=== PATIENT | female | born 1985 | race Caucasian/White ===

== ENCOUNTER 2022-02-24 08:56 | Day surgery (SDC) | payer SELFPAY ==
[2022-02-12 12:50] VITALS: BMI 36.2
[2022-02-24] MEDS ORDERED: PROPOFOL 2,000,000 MCG/200 ML VIAL ONE (12:48)
[2022-02-24] MEDS ORDERED: MIDAZOLAM HCL 2 MG/2 ML SINGLE DOSE VIAL ONE (12:52)
[2022-02-24] MEDS ORDERED: fentaNYL CITRATE 250 MCG/5 ML VIAL ONE (12:52)
[2022-02-24] MEDS ORDERED: ROCURONIUM BROMIDE 50 MG/5 ML SYRINGE ONE ×2 (12:53→14:25)
[2022-02-24] MEDS ORDERED: BUPIVACAINE LIPOSOME/PF (EXPAREL) 266 MG/20 ML VIAL ONE (12:57)
[2022-02-24] MEDS ORDERED: EPINEPHrine/PF 1 MG/1 ML (1:1,000) AMPULE ONE (12:58)
[2022-02-24] MEDS ORDERED: BUPIVACAINE HCL/PF 0.25% (2.5MG/ML) 10 ML VIAL ONE (12:59)
[2022-02-24] MEDS ORDERED: BUPIVACAINE HCL/PF 2.5 MG/ML - 30 ML VIAL IJ ONE (12:59)
[2022-02-24] MEDS ORDERED: HYDROmorphone HCL/PF 1 MG/ML VIAL ONE ×3 (13:09→16:30)
[2022-02-24] MEDS ORDERED: HEPARIN NA (PORCINE) 5,000 UNITS/ML 1ML VIAL ONE (13:25)
[2022-02-24] MEDS ORDERED: ePHEDrine SULFATE 50 MG/1 ML AMPULE ONE (13:27)
[2022-02-24] MEDS ORDERED: PROPOFOL 20 ML ONE ×3 (17:25)
[2022-02-24] MEDS ORDERED: ONDANSETRON 4 MG/2 ML VIAL IVPUSH PRN (18:09)
[2022-02-24] MEDS ORDERED: oxyCODONE HCL 5 MG TABLET PO PRN ×2 (18:09→19:19)
[2022-02-24] MEDS ORDERED: PROMETHAZINE HCL 25 MG/1 ML VIAL IVPUSH PRN (18:09)
[2022-02-24] MEDS ORDERED: ACETAMINOPHEN 1000 MG/100 ML BAG IVPB PRN (18:12)
[2022-02-24] MEDS ORDERED: ONDANSETRON 4 MG/2 ML VIAL IVPB PRN (19:19)
[2022-02-24] MEDS ORDERED: LORATADINE 10 MG TABLET PO PRN (19:22)
[2022-02-24] MEDS ORDERED: LACTATED RINGERS SOLUTION 1,000 ML IV SCH (19:30)
[2022-02-24] MEDS ORDERED: HEPARIN NA (PORCINE) 5,000 UNITS/ML 1ML VIAL SQ SCH (22:00)
[2022-02-25] MEDS ORDERED: ceFAZolin SODIUM 1 GM VIAL ONE (01:03)
[2022-02-25] MEDS ORDERED: DEXTROSE 5%-WATER - 50 ML IVPB ONE (01:03)
[2022-02-25] MEDS: CEFAZOLIN 1 GM in DEXTROSE 5%-WATER - 1 GM/50 ML IVPB IVPB SCH ×2 (01:14→10:07)
[2022-02-25] MEDS: oxyCODONE HCL 5 MG TABLET PO PRN ×3 (01:50→10:08)
[2022-02-25 07:02] VITALS: PULSE 79; TEMP 97.9
[2022-02-25 07:04] VITALS: BP 105/60
[2022-02-25] MEDS ORDERED: LACTATED RINGERS SOLUTION 1,000 ML/1,000 ML INFUS.BAG IV STA (07:10)
[2022-02-25] MEDS ORDERED: LORATADINE 10 MG TABLET PO PRN (07:21)
[2022-02-25] MEDS ORDERED: morphine SULFATE 4 MG/ML VIAL IVPUSH PRN (07:21)
[2022-02-25] MEDS ORDERED: HEPARIN NA (PORCINE) 5,000 UNITS/ML 1ML VIAL SQ SCH (08:00)
[2022-02-25 08:56] LABS: HEMATOCRIT 32.2 % (32.4-45.2); HEMOGLOBIN 10.9 G/dL (10.7-15.3); MCHC 33.7 g/dl (32.0-36.0); MEAN CELL VOLUME 83.1 fl (80-96); MEAN PLT VOLUME 9.7 fl (7.5-11.1); PLATELET COUNT 296.7 10^3/uL (134-434); RBC 3.87 10^6/uL (3.60-5.2); RDW 14.6 % (11.6-15.6)
== END 2022-02-25 13:24 | disposition home or self-care (01) ==
LOC: FASU 08:56 → FM/S 19:19 → FASU 02-25 13:24
PROVIDERS: ATTEND Plastic Surgery
PROC: 0J080ZZ Alteration of Abdomen Subcutaneous Tissue and Fascia, Open Approach (ICD-10-PCS; principal; 2022-02-24 13:41)
PROC: 0J083ZZ Alteration of Abdomen Subcutaneous Tissue and Fascia, Percutaneous Approach (ICD-10-PCS; 2022-02-24 13:41)
DX: M95.8 Other specified acquired deformities of musculoskeletal system (principal)
CPT/HCPCS: 36415; 84703; 85027; 94760; J1644